=== PATIENT | female | born 1985 | race Hispanic/Latino ===

== ENCOUNTER 2017-09-27 13:52 | Outpatient (CLI) | payer MEDICAID ==
--- NOTE | 2017-09-27 14:37 | XRay Report ---
Left shoulder: Pain There is mild spurring of the inferior glenoid associated with mild sclerosis and subchondral cysts. The articular margin of the humerus is smooth. There is normal alignment and the soft tissues are unremarkable. Well-preserved subacromial space. Impression: Degenerative glenoid changes as described.
== END 2017-09-27 13:53 | disposition home or self-care (01) ==
LOC: SPVIMAG 13:52
PROVIDERS: ATTEND Orthopaedic Surgery Sports Medicine
DX: M19.012 Primary osteoarthritis, left shoulder (principal); M25.812 Other specified joint disorders, left shoulder

== ENCOUNTER 2020-09-16 22:45 | Emergency (ER) | payer MEDICAID, BC ==
--- NOTE | 2020-09-16 22:57 | Emergency Department Report ---
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 No hemoptysis no hematemesis no mucus production no fever chills or sweats no exertional dyspnea no calf pain but did have loss of taste and smell. This initial assessment/diagnostic orders/clinical plan/treatment(s) is/are subject to change based on patients health status, clinical progression and re- assessment by fellow clinical providers in the ED. Further treatment and workup at subsequent clinical providers discretion. Patient/guardian urged not to elope from the ED as their condition may be serious if not clinically assessed and managed. Initial orders include: Chest x-ray
[2020-09-16 22:58] VITALS: BP 151/103
--- NOTE | 2020-09-16 23:22 | XRay Report ---
XR chest routine 2V INDICATION / CLINICAL INFORMATION: cp with respiration COMPARISON: None available. FINDINGS: SUPPORT DEVICES: None. HEART / MEDIASTINUM: No significant abnormality. LUNGS / PLEURA: There are 2 right lateral mid/lower zone patchy opacities. Costophrenic sulci are sh rinku. No pneumothorax. ADDITIONAL FINDINGS: No significant additional findings. IMPRESSION: 1. Possible airspace disease in the right lateral mid/lowerlung zone which could represent infectious etiology. Signer Name: Roberto Catalan MD Signed: 09/16/2020 11:18 PM Workstation Name: [id number]
[2020-09-17] MEDS ORDERED: dexAMETHasone 4 MG/ML VIAL IM ONE (00:09)
[2020-09-17] MEDS ORDERED: LIDOCAINE-MPF (1%) 10 MG/1 ML VIAL 5 ML INFILTRATI ONE (00:09)
--- NOTE | 2020-09-17 00:17 | Emergency Department Report ---
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 No hemoptysis no hematemesis no mucus production no fever chills or sweats no exertional dyspnea no calf pain but did have loss of taste and smell. -: Gradual, days(s) Location: chest Radiation: back Consistency: constant Improves with: none Worsens with: other (Cough deep breath respiration) Associated Symptoms: cough - Related Data Previous Rx's Medication Instructions Recorded Last Taken Type Albuterol Mdi (or & Nicu Only) 1 puff IH Q4-6H PRN #1 inha 09/17/20 Unknown Rx [ProAir HFA Inhaler] Azithromycin [Zithromax] 500 mg PO QDAY #5 tablet 09/17/20 Unknown Rx Ketorolac [Toradol] 10 mg PO Q6H PRN #15 tablet 09/17/20 Unknown Rx Allergies Allergy/AdvReac Type Severity Reaction Status Date / Time tramadol Allergy Rash Verified 09/16/20 22:54 ED Review of Systems ROS: Stated complaint: CHEST PAIN/PAIN IN BACK/COVID + Other details as noted in HPI Comment: All other systems reviewed and negative ED Past Medical Hx - Past Medical History Previous Medical History?: No - Surgical History Past Surgical History?: No - Social History Smoking Status: Never Smoker Substance Use Type: None - Medications Home Medications: Home Medications Medication Instructions Recorded Confirmed Last Taken Type Albuterol Mdi (or & Nicu Only) 1 puff IH Q4-6H PRN #1 inha 09/17/20 Unknown Rx [ProAir HFA Inhaler] Azithromycin [Zithromax] 500 mg PO QDAY #5 tablet 09/17/20 Unknown Rx Ketorolac [Toradol] 10 mg PO Q6H PRN #15 tablet 09/17/20 Unknown Rx ED Physical Exam - General Limitations: No Limitations General appearance: alert, in no apparent distress - Head Head exam: Present: atraumatic, normocephalic - Eye Eye exam: Present: normal appearance, PERRL, EOMI Pupils: Present: normal accommodation - ENT ENT exam: Present: normal exam, normal orophraynx, mucous membranes moist - Neck Neck exam: Present: normal inspection, full ROM - Respiratory Respiratory exam: Present: normal lung sounds bilaterally. Absent: respiratory distress, rales, rhonchi, prolonged expiratory - Cardiovascular Cardiovascular Exam: Present: regular rate, normal rhythm. Absent: bradycardia, tachycardia, systolic murmur, diastolic murmur, rubs, gallop - GI/Abdominal GI/Abdominal exam: Present: soft, normal bowel sounds. Absent: tenderness, guarding - Extremities Exam Extremities exam: Present: normal inspection - Back Exam Back exam: Present: normal inspection - Neurological Exam Neurological exam: Present: alert, oriented X3 - Psychiatric Psychiatric exam: Present: normal affect, normal mood - Skin Skin exam: Present: warm, dry, intact, normal color. Absent: rash ED Course Vital Signs 09/16/20 09/16/20 22:48 23:45 Temperature 98.3 F Pulse Rate 81 Respiratory 18 Rate Blood Pressure 151/103 O2 Sat by Pulse 99 96 Oximetry ED Medical Decision Making - Radiology Data Radiology results: report reviewed [facility] [address] [place] [address] XRay Report Signed Patient: TANNER AGUSTIN MR#: [id number] : 1985 Acct:[id number] Age/Sex: 35 / F ADM Date: 09/16/20 Loc: ED Attending Dr: Ordering Physician: DEBO HINOJOSA Date of Service: 09/16/20 Procedure(s): XR chest routine 2V Accession Number(s): [id number] cc: DEBO HINOJOSA Fluoro Time In Minutes: XR chest routine 2V INDICATION / CLINICAL INFORMATION: cp with respiration COMPARISON: None available. FINDINGS: SUPPORT DEVICES: None. HEART / MEDIASTINUM: No significant abnormality. LUNGS / PLEURA: There are 2 right lateral mid/lower zone patchy opacities. Costophrenic sulci are sharp. No pneumothorax. ADDITIONAL FINDINGS: No significant additional findings. IMPRESSION: 1. Possible airspace disease in the right lateral mid/lowerlung zone which could represent infectious etiology. Signer Name: Roberto Catalan MD Signed: 09/16/2020 11:18 PM Workstation Name: [id number] Transcribed By: CS Dictated By: Roberto Catalan MD Electronically Authenticated By: Roberto Catalan MD Signed Date/Time: 09/16/202317 DD/ 15 TD/TT: - Medical Decision Making This patient presents with acute cough, most consistent with coronavirus related pneumonia. Differential diagnosis includes bronchitis, hyperreactive airway disease,. Presentation not consistent with acute bacterial pneumonia, influenza, asthma, transient airway hyperresponsiveness. Presentation not consistent with chronic causes of cough (including GERD, asthma, postnasal discharge, medication side effect, CHF, lung cancer or mass). Plan: Chest x-ray shows opacities involving, supportive care, antibiotics pain medication Critical care attestation.: If time is entered above; I have spent that time in minutes in the direct care of this critically ill patient, excluding procedure time. ED Disposition Clinical Impression: Pneumonia due to COVID-19 virus Disposition: - TO HOME OR SELFCARE Is pt being admited?: No Does the pt Need Aspirin: No Condition: Stable Instructions: Bacterial Pneumonia (ED), COVID-19 Frequently Asked Questions, COVID-19: How to Protect Yourself and Others - CDC, Nonspecific Chest Pain, Adult, [id number], Pneumonitis, Community-Acquired Pneumonia, Adult Prescriptions: Albuterol Mdi (or & Nicu Only) [ProAir HFA Inhaler] 1 puff IH Q4-6H PRN #1 inha PRN Reason: Cough Ketorolac [Toradol] 10 mg PO Q6H PRN #15 tablet PRN Reason: Pain Azithromycin [Zithromax] 500 mg PO QDAY #5 tablet Referrals: PRIMARY CARE, [Primary Care Provider] - 3-5 Days [facility] [Provider Group] - 3-5 Days
== END 2020-09-17 02:18 | disposition home or self-care (01) ==
LOC: ED 22:45
DX: U07.1 COVID-19 (principal); Z79.899 Other long term (current) drug therapy; Z88.8 Allergy status to other drugs, medicaments and biological substances
CPT/HCPCS: 71046; 96372; 99283; J0696; J1100

== ENCOUNTER 2020-09-26 08:00 | Outpatient (CLI) | payer BC ==
--- NOTE | 2020-09-26 09:04 | XRay Report ---
XR chest routine 2V INDICATION / CLINICAL INFORMATION: Covid. COMPARISON: 09/16/2020 FINDINGS: SUPPORT DEVICES: None. HEART /PULMONARY VASCULATURE: No significant abnormality. LUNGS / PLEURA: No significant pulmonary or pleural abnormality. No pneumothorax. ADDITIONAL FINDINGS: No significant additional findings. IMPRESSION: 1. No acute findings. Signer Name: Ricky Michele MD Signed: 09/26/2020 8:59 AM Workstation Name: [id number]
[2020-09-26 09:45] LABS: Basophils % (Auto) 0.3 % (0.0-1.8); Eosinophils % (Auto) 0.2 % (0.0-4.3); Hematocrit 43.1 % (30.3-42.9); Lymphocytes % (Auto) 18.6 % (13.4-35.0); Mean Corpuscular HGB Conc 35 % (30-34); Mean Corpuscular Volume 92 fl (79-97); Monocytes # (Auto) 1.1 K/mm3 (0.0-0.8); Monocytes % (Auto) 10.1 % (0.0-7.3); Platelet Count 289 K/mm3 (140-440); Red Blood Count 4.72 M/mm3 (3.65-5.03)
[2020-09-26 10:14] LABS: Alanine Aminotransferase 22 units/L (7-56); Blood Urea Nitrogen 6 mg/dL (7-17); Hemolysis Index 12
[2020-09-26 10:15] LABS: BUN/Creatinine Ratio 12
== END 2020-09-26 08:01 | disposition home or self-care (01) ==
LOC: XRAY 08:00
PROVIDERS: ATTEND Family Medicine
DX: U07.1 COVID-19 (principal); J18.9 Pneumonia, unspecified organism; R00.2 Palpitations; Z68.29 Body mass index [BMI] 29.0-29.9, adult
CPT/HCPCS: 36415; 71046; 80053; 85025; 93005

== ENCOUNTER 2020-11-28 12:47 | Emergency (ER) | payer BC ==
[2020-11-28] MEDS ORDERED: FAMOTIDINE 20 MG TAB PO ONE (13:00)
[2020-11-28] MEDS ORDERED: IBUPROFEN 800 MG TAB PO ONE (13:00)
--- NOTE | 2020-11-28 13:22 | XRay Report ---
CHEST 1 VIEW 11/28/2020 12:17 PM INDICATION / CLINICAL INFORMATION: Chest pain. COMPARISON: 2 views of the chest dated 09/26/2020. FINDINGS: SUPPORT DEVICES: None. HEART / MEDIASTINUM: No significant abnormality. LUNGS / PLEURA: Clear lungs. No significant pleural effusion. No pneumothorax. ADDITIONAL FINDINGS: No significant additional findings. IMPRESSION: 1. No acute abnormality of the chest. Signer Name: Shelton Almazan MD Signed: 11/28/2020 1:18 PM Workstation Name: [id number]
[2020-11-28 13:38] LABS: Basophils % (Auto) 0.7 % (0.0-1.8); Eosinophils # (Auto) 0.1 K/mm3 (0.0-0.4); Eosinophils % (Auto) 1.4 % (0.0-4.3); Hematocrit 41.4 % (30.3-42.9); Hemoglobin 14.3 gm/dl (10.1-14.3); Lymphocytes # (Auto) 1.6 K/mm3 (1.2-5.4); Mean Corpuscular HGB Conc 35 % (30-34); Mean Corpuscular Volume 93 fl (79-97); Monocytes # (Auto) 0.5 K/mm3 (0.0-0.8); Monocytes % (Auto) 8.1 % (0.0-7.3); Platelet Count 288 K/mm3 (140-440); Red Blood Count 4.44 M/mm3 (3.65-5.03); Red Cell Distribution Width 12.9 % (13.2-15.2)
[2020-11-28 13:40] VITALS: BP 128/84
[2020-11-28 14:00] LABS: Blood Urea Nitrogen 11 mg/dL (7-17); Calcium 9.6 mg/dL (8.4-10.2); Hemolysis Index 20
[2020-11-28 14:01] LABS: BUN/Creatinine Ratio 22
--- NOTE | 2020-11-28 14:23 | Emergency Department Report ---
ED Chest Pain HPI - General Chief Complaint: Chest Pain Stated Complaint: CHEST PAIN Time Seen by Provider: 11/28/20 12:59 Source: patient Mode of arrival: Ambulatory Limitations: No Limitations - History of Present Illness Initial Comments: Patient is a 35-year-old female with no significant past medical history who is presenting with chest discomfort. Patient states that last night while sleeping she felt some mild discomfort in the chest. States that it resolved. Today while at work she states she started feeling pounding in her chest. She then states that she felt some arm tingling. [place] near syncopal but did not lose consciousness. Patient states that initially there was some mild shortness of breath but this is resolved. No pleuritic component or exertional component was present. She denies cough cold congestion fevers or chills. Patient did test positive for COVID-19 with some slight pneumonia approximately 4 months ago but has had no further complications since that time. Severity scale (0 -10): 5 - Related Data Previous Rx's Medication Instructions Recorded Last Taken Type Albuterol Mdi (or & Nicu Only) 1 puff IH Q4-6H PRN #1 inha 09/17/20 Unknown Rx [ProAir HFA Inhaler] Azithromycin [Zithromax] 500 mg PO QDAY #5 tablet 09/17/20 Unknown Rx Ketorolac [Toradol] 10 mg PO Q6H PRN #15 tablet 09/17/20 Unknown Rx Allergies Allergy/AdvReac Type Severity Reaction Status Date / Time tramadol Allergy Rash Verified 09/16/20 22:54 Heart Score - HEART Score History: Slightly suspicious EKG: Normal Age: < 45 Risk factors: No known risk factors Troponin: < normal limit HEART Score: 0 ED Review of Systems ROS: Stated complaint: CHEST PAIN Other details as noted in HPI Comment: All other systems reviewed and negative ED Past Medical Hx - Past Medical History Previous Medical History?: Yes Hx Pulmonary Embolism: Yes (pneumonia Sep 2020) Additional medical history: Covid 2019 - Surgical History Past Surgical History?: No - Social History Smoking Status: Never Smoker Substance Use Type: None - Medications Home Medications: Home Medications Medication Instructions Recorded Confirmed Last Taken Type Albuterol Mdi (or & Nicu Only) 1 puff IH Q4-6H PRN #1 inha 09/17/20 Unknown Rx [ProAir HFA Inhaler] Azithromycin [Zithromax] 500 mg PO QDAY #5 tablet 09/17/20 Unknown Rx Ketorolac [Toradol] 10 mg PO Q6H PRN #15 tablet 09/17/20 Unknown Rx ED Physical Exam - General Limitations: No Limitations General appearance: alert, in no apparent distress - Head Head exam: Present: atraumatic, normocephalic - Eye Eye exam: Present: normal appearance - ENT ENT exam: Present: mucous membranes moist - Neck Neck exam: Present: normal inspection - Respiratory Respiratory exam: Present: normal lung sounds bilaterally. Absent: respiratory distress, wheezes, rales, rhonchi - Cardiovascular Cardiovascular Exam: Present: regular rate, normal rhythm, normal heart sounds. Absent: systolic murmur, diastolic murmur, rubs, gallop - GI/Abdominal GI/Abdominal exam: Present: soft, normal bowel sounds. Absent: distended, tenderness, guarding, rebound - Extremities Exam Extremities exam: Present: normal inspection - Back Exam Back exam: Present: normal inspection - Neurological Exam Neurological exam: Present: alert, oriented X3 - Psychiatric Psychiatric exam: Present: normal affect, normal mood, anxious - Skin Skin exam: Present: warm, dry, intact, normal color. Absent: rash ED Course Vital Signs 11/28/20 13:04 Temperature 98.3 F Pulse Rate 80 Respiratory 20 Rate Blood Pressure 128/84 [Left] O2 Sat by Pulse 99 Oximetry ED Medical Decision Making - Lab Data Result diagrams: 11/28/20 13:08 11/28/20 13:08 Lab Results 11/28/20 11/28/20 11/28/20 Range/Units 13:08 13:08 13:08 WBC 6.2 (4.5-11.0) K/mm3 RBC 4.44 (3.65-5.03) M/mm3 Hgb 14.3 (10.1-14.3) gm/dl Hct 41.4 (30.3-42.9) % MCV 93 (79-97) fl MCH 32 (28-32) pg MCHC 35 H (30-34) % RDW 12.9 L (13.2-15.2) % Plt Count 288 (140-440) K/mm3 Lymph % (Auto) 26.0 (13.4-35.0) % Wall[place] % (Auto) 8.1 H (0.0-7.3) % Eos % (Auto) 1.4 (0.0-4.3) % Baso % (Auto) 0.7 (0.0-1.8) % Lymph # (Auto) 1.6 (1.2-5.4) K/mm3 [place] # (Auto) 0.5 (0.0-0.8) K/mm3 Eos # (Auto) 0.1 (0.0-0.4) K/mm3 Baso # (Auto) 0.0 (0.0-0.1) K/mm3 Seg Neutrophils % 63.8 (40.0-70.0) % Seg Neutrophils # 4.0 (1.8-7.7) K/mm3 D-Dimer < 135.00 (0-234) ng/mlDDU Sodium 136 L (137-145) mmol/L Potassium 4.4 (3.6-5.0) mmol/L Chloride 101.7 (98-107) mmol/L Carbon Dioxide 23 (22-30) mmol/L Anion Gap 16 mmol/L BUN 11 (7-17) mg/dL Creatinine 0.5 L (0.6-1.2) mg/dL Estimated GFR > 60 ml/min BUN/Creatinine Ratio 22 % Glucose 96 (65-100) mg/dL Calcium 9.6 (8.4-10.2) mg/dL Troponin T < 0.010 (0.00-0.029) ng/mL - EKG Data -: EKG Interpreted by [place] EKG shows normal: sinus rhythm, axis, intervals, QRS complexes, ST-T waves Rate: normal - EKG Data Interpretation: normal EKG - Radiology Data [facility] [address] [place] [address] XRay Report Signed Patient: TANNER AGUSTIN MR#: [id number] : 1985 Acct:[id number] Age/Sex: 35 / F ADM Date: 11/28/20 Loc: ED Attending Dr: Ordering Physician: PHUONG REYNA MD Date of Service: 11/28/20 Procedure(s): XR chest 1V ap Accession Number(s): [id number] cc: PHUONG REYNA MD Fluoro Time In Minutes: CHEST 1 VIEW 11/28/2020 12:17 PM INDICATION / CLINICAL INFORMATION: Chest pain. COMPARISON: 2 views of the chest dated 09/26/2020. FINDINGS: SUPPORT DEVICES: None. HEART / MEDIASTINUM: No significant abnormality. LUNGS / PLEURA: Clear lungs. No significant pleural effusion. No pneumothorax. ADDITIONAL FINDINGS: No significant additional findings. IMPRESSION: 1. No acute abnormality of the chest. Signer Name: Shelton Almazan MD Signed: 11/28/2020 1:18 PM Workstation Name: [id number] Transcribed By: MN Dictated By: Shelton Almazan MD Electronically Authenticated By: Shelton Almazan MD Signed Date/Time: 11/28/20 131 DD/ 16 TD/TT: - Medical Decision Making Patient with atypical symptoms and a heart score of 0. Is possible to the patient could have some anxiety component or acid reflux. Patient has been ruled out for pericarditis pulmonary embolus acute ID pneumonia and tamponade. No emergent conditions are been found the patient will be discharged home. Critical care attestation.: If time is entered above; I have spent that time in minutes in the direct care of this critically ill patient, excluding procedure time. ED Disposition Clinical Impression: Atypical chest pain Disposition: DC-01 TO HOME OR SELFCARE Is pt being admited?: No Does the pt Need Aspirin: No Condition: Stable Instructions: Nonspecific Chest Pain, Adult Time of Disposition: 14:27
--- NOTE | 2020-11-29 10:35 | Electrocardiograph Report ---
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
== END 2020-11-28 15:27 | disposition home or self-care (01) ==
LOC: ED 12:47
DX: R07.89 Other chest pain (principal); Z53.21 Procedure and treatment not carried out due to patient leaving prior to being seen by health care provider
CPT/HCPCS: 36415; 71045; 80048; 84484; 85025; 85379; 93005

== ENCOUNTER 2020-12-03 07:27 | Outpatient (CLI) | payer BC ==
--- NOTE | 2020-12-03 09:17 | XRay Report ---
CERVICAL SPINE 6 VIEWS INDICATION / CLINICAL INFORMATION: NEXK PAIN. COMPARISON: None available. FINDINGS: VERTEBRAE: No acute fracture. No significant malalignment. DISC SPACES / FACET JOINTS:No significant abnormality. PARASPINAL SOFT TISSUES:No significant abnormality. ADDITIONAL FINDINGS: None. Signer Name: Vlad Rees MD Signed: 12/03/2020 9:12 AM Workstation Name: [id number]
== END 2020-12-03 07:28 | disposition home or self-care (01) ==
LOC: XRAY 07:27
PROVIDERS: ATTEND Family Medicine
DX: M54.2 Cervicalgia (principal)
CPT/HCPCS: 72050

== ENCOUNTER 2020-12-18 11:20 | Outpatient (CLI) | payer BC | END 2020-12-18 11:21 | disposition home or self-care (01) | LOC: LAB 11:20 | PROVIDERS: ATTEND Family Medicine | DX: R51.9 Headache, unspecified (principal); R20.2 Paresthesia of skin; Z87.01 Personal history of pneumonia (recurrent) | CPT/HCPCS: 36415; 82306; 82607 ==

== ENCOUNTER 2020-12-19 07:27 | Outpatient (CLI) | payer BC ==
--- NOTE | 2020-12-19 08:56 | Cat Scan Report ---
CT head without contrast INDICATION : MAIN. Headache and bilateral arm/hand numbness TECHNIQUE: Axial imaging performed from the skull apex through the skull base without the use of con trast. All CT scans at this location are performed using CT dose reduction for ALARA by means of aut omated exposure control. COMPARISON: None FINDINGS: Parenchyma: No acute intracranial hemorrhage or parenchymal abnormality. Ventricles: Ventricles are normal in size and appear symmetric. Soft tissues: Soft tissues including the orbits appear normal. Bones: No acute osseous abnormality. Sinuses: Sinuses and mastoid air cells are clear. IMPRESSION: No acute abnormality. Signer Name: Qamar Grajeda MD Signed: 12/19/2020 8:52 AM Workstation Name: [id number]
== END 2020-12-19 07:28 | disposition home or self-care (01) ==
LOC: CT 07:27
PROVIDERS: ATTEND Family Medicine
DX: R51.9 Headache, unspecified (principal); R20.2 Paresthesia of skin; M79.10 Myalgia, unspecified site; Z87.01 Personal history of pneumonia (recurrent)
CPT/HCPCS: 70450

== ENCOUNTER 2021-01-14 09:45 | Outpatient (CLI) | payer BC ==
--- NOTE | 2021-01-14 14:06 | Magnetic Resonance Report ---
MRI LUMBAR SPINE WITHOUT AND WITH CONTRAST INDICATION / CLINICAL INFORMATION: ANESTHESIA OF SKIN. TECHNIQUE: Multisequence, multiplanar images of the lumbar spine were obtained before and after 16 mL of Clarisc an COMPARISON: None available. FINDINGS: Lumbosacral junction L5-S1 ALIGNMENT: Normal lumbar lordosis without significant scoliosis. VERTEBRAE:Normal marrow signal and vertebral body height for age. VISUALIZED SPINAL CORD: No significant abnormality. Conus ends at L1 vertebral body level; no signal intensity changes in the distal spinal cord; no enhancing intradural lesion in the lumbar spine [id number] ANALYSIS: L1-2: No significant abnormality. L2-3: No significant abnormality. L3-4: No significant abnormality. L4-5: No significant abnormality. L5-S1: Moderate facet and ligamentous hypertrophy; shallow bulging disc; neuroforamina are normal PARASPINAL SOFT TISSUES: No significant abnormality. ADDITIONAL FINDINGS: None. IMPRESSION: No focal disc herniation, spinal canal stenosis or nerve root compression. No enhancing intradural lesion Signer Name: Melchor Lie MD Signed: 01/14/2021 2:02 PM Workstation Name: [id number]
== END 2021-01-14 09:46 | disposition home or self-care (01) ==
LOC: MRI 09:45
PROVIDERS: ATTEND Psychiatry & Neurology Neurology
DX: R20.0 Anesthesia of skin (principal)
CPT/HCPCS: 72158; A9575